=== PATIENT | male | born 2000 | race Caucasian/White ===

== ENCOUNTER 2024-03-04 09:47 | Emergency (ER) | payer OTHER, SELFPAY ==
[2024-03-04 09:55] VITALS: BP 150/91
--- NOTE | 2024-03-04 11:15 | ED.GENMED ---
History of Present Illness
General
Chief Complaint: Skin Problem
Source: patient
Exam Limitations: none
Time Seen by Provider: 03/04/24 11:03
Nursing documentation reviewed up to this point in time: agreed with
Travel History
Have you had any contact with someone who has COVID-19?: No
Do you have any symptoms of coronavirus? Fever > 100 degrees, chills, cough, shortness of breath, sore throat, loss of taste or smell, muscle aches, or headache?: No
History of Present Illness
History of Present Illness:
24-year-old male presents emergency room complaining of infection in his right index finger this past Wednesday. He is having redness and pain up his right wrist. His arm is red, but he is sunburned. 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 He thinks a splinter was
in it. He notes that he expressed pus from it.
Past History
Past History
ED Past Medical History: None; Negative HTN, Hypercholesterolemia or NIDDM
ED Past Surgical History: Orthopedic (Right arm pinned) and Other (Facial plastic surgery)
Social History
Tobacco: Non-smoker
Alcohol: None
Drug: None
Personal: Single
Living: with family
Review of Systems
Review of Systems
Allergies reviewed?: Yes
All Other Systems: Not applicable
Constitutional: Reports no symptoms; Denies fever
EENT: Reports no symptoms
Respiratory: Reports no symptoms
Cardiac: Reports no symptoms
ABD/GI: Reports no symptoms
: Reports no symptoms
Musculoskeletal: Reports no symptoms
Skin: Reports rash
Neurological: Reports no symptoms
Endocrine: Reports no symptoms
Hematologic/Lymphatic: Reports no symptoms
Phy Exam
Physical Exam
Physical Exam:
Physical Exam
General: no apparent distress, not acutely ill, afebrile
Neck: supple. no meningeal signs. normal posterior pharynx
Heart: equal radial pulses.
HEENT: Pupils equal round reactive to light, EOMI
Lungs: no acute respiratory distress.
Abdomen: nondistended
Neuro: alert and oriented. no focal neurological deficits
Skin: Mild erythema right hand, induration at right index fingertip pad
Psychiatric: well kept. interactive and cooperative
Extremities: no edema. no calf tenderness. negative homans. good distal pulses
Course
Orders/Labs/Results
Orders:
Orders
03/04/24 10:31
Hand, Right 3 View [CR Hand - Right Min 3 Views] Urgent
Comment:
Reason For Exam: swelling no trauma
Vital Signs
Initial and Last Documented VS:
Initial Vital Signs
Temp Pulse BP Pulse Ox
98.3 F 78 150/91 95
03/04/24 09:55 03/04/24 09:55 03/04/24 09:55 03/04/24 09:55
Last Documented Vital Signs
Temp Pulse BP Pulse Ox
98.3 F 78 150/91 95
03/04/24 09:55 03/04/24 09:55 03/04/24 09:55 03/04/24 09:55
MDM/Problems Addressed
Differential Diagnosis Includes:
Cellulitis, foreign body
MDM/Problems Addressed:
24-year-old male with recent foreign body in finger, will treat with short course of Keflex. Possible mild cellulitis. No foreign body seen. Do not suspect flexor tenosynovitis
*Radiology
Radiology exam reviewed: preliminary read by ED provider (Right hand x-ray no acute findings)
*Pulse Oximetry
Patient hypoxic: no
*EKG
Interpreted by ED Provider?: NA
*Product Mgmt Dev Manager Interpretation
Rate: Product Mgmt Dev Manager- N/A
*Critical Care Note
Total Time (30-74mins, 75-104mins- exclusive of procedures): Not Applicable
Patient Management
Social determinants of health affecting care: Living situation and Strong social support
Escalation/DeEscalation of care consider admission/obs:
admit not indicated
ED Attending Note
-
Portions of this chart may have been created with voice recognition software.� Occasional wrong word or��sound alike� substitutions may have occurred due to the inherent limitations of voice recognition software.
Discharge Plan
Departure
Patient Disposition: Home (Routine Discharge)
Date of Disposition: 03/04/24
Time of Disposition: 11:25
Patient with high blood pressure during this ER visit?: Yes
Condition: Good
Discharge Problem:
Cellulitis of right index finger
Instructions: Cellulitis (Skin Infection), Adult (DC), BLOOD PRESSURE
Prescriptions:
New
cephalexin 500 mg capsule
500 mg PO BID 7 Days Qty: 14 0RF
No Action
azithromycin 250 MG tablet
250 mg PO DAILY 5 Days Qty: 6 0RF
ondansetron 4 MG tablet,disintegrating
4 mg PO TIDPRN PRN (Reason: nausea/vomiting) Qty: 6 0RF
guaifenesin [Mucinex] 600 MG tablet extended release 12hr
600 mg PO [id number] PRN (Reason: cough/congestion) Qty: 15 0RF
Activity Restrictions/Additional Instructions:
Your prescription was sent to [facility] in [place]
Interventions
Interventions:
*Risk Screen - Suicide Last Done: 03/04/24 09:57
*General Assessment Last Done: 03/04/24 10:01
*Neglect/Abuse Screening Last Done: 03/04/24 10:01
Discharge Date and Time
Print Language: SLOVAK
== END 2024-03-04 11:36 | disposition home or self-care (01) ==
LOC: EMR 09:47
PROVIDERS: EMERGENCY PHYSICIAN Emergency Medicine; FAMILY PHYSICIAN Nurse Practitioner Family
DX: L03.011 Cellulitis of right finger (principal)
CPT/HCPCS: 99283; 73130